=== PATIENT | female | born 1990 | race American Indian/Alaskan Native ===

== ENCOUNTER 2021-02-03 04:39 | Emergency (ER) | payer SELFPAY ==
--- NOTE | 2021-02-03 05:42 | Emergency Department Report ---
<KAYKAY FERNANDES - Last Filed: 02/03/21 07:03> ED General Adult HPI - General Chief complaint: Arrhythmia/Palpitations Stated complaint: PALPITATIONS Time Seen by Provider: 02/03/21 05:08 Source: patient, EMS Mode of arrival: Stretcher Limitations: No Limitations - History of Present Illness Initial comments: Patient is a 30-year-old female presents emergency room complaints of palpitations and shortness of breath that began just prior to arrival. Patient states that she was at a nightclub. She states that there was a lot of smoke in the club. She states that she also drank a mixed drink containing red bull energy drink and Coco liquor. She states that she had never drank a red bull previously. She states that when she began to leave the club but when she started to feel the symptoms. She states prior to this she was not having any symptoms. She denies any chest pain, nausea, vomiting, diarrhea, cough, leg swelling. She denies any sick contacts. She states that she did just travel from [place] and is visiting from out of town. She denies any recent surgery, recent immobilization, hormone use. No past medical history. No allergies to medications. Last menstrual cycle of third week of December. She states that she is a non-smoker. She denies any drug use. She states that she did not leave her drink unattended. - Related Data Previous Rx's Medication Instructions Recorded Last Taken Type Albuterol Mdi (or & Nicu Only) 2 puff IH QID PRN #8.5 gram 02/03/21 Unknown Rx [ProAir HFA Inhaler] Allergies Allergy/AdvReac Type Severity Reaction Status Date / Time shellfish derived Allergy Hives Verified 02/03/21 04:56 ED Review of Systems Comment: All other systems reviewed and negative ED Past Medical Hx - Past Medical History Previous Medical History?: No - Surgical History Past Surgical History?: No - Social History Smoking Status: Never Smoker - Medications Home Medications: Home Medications Medication Instructions Recorded Confirmed Last Taken Type Albuterol Mdi (or & Nicu Only) 2 puff IH QID PRN #8.5 gram 02/03/21 Unknown Rx [ProAir HFA Inhaler] ED Physical Exam - General Limitations: No Limitations General appearance: alert, in no apparent distress - Head Head exam: Present: atraumatic, normocephalic - Eye Eye exam: Present: normal appearance - ENT ENT exam: Present: mucous membranes moist - Respiratory Respiratory exam: Present: normal lung sounds bilaterally. Absent: respiratory distress, wheezes, rales, rhonchi, stridor, chest wall tenderness, accessory muscle use, decreased breath sounds, prolonged expiratory - Cardiovascular Cardiovascular Exam: Present: normal rhythm, tachycardia (mildly), normal heart sounds. Absent: systolic murmur, diastolic murmur, rubs, gallop - Neurological Exam Neurological exam: Present: alert, oriented X3, CN II-XII intact, normal gait. Absent: motor sensory deficit - Psychiatric Psychiatric exam: Present: normal affect, normal mood - Skin Skin exam: Present: warm, dry, intact ED Medical Decision Making - Lab Data Result diagrams: 02/03/21 05:30 02/03/21 05:30 - EKG Data EKG shows normal: sinus rhythm, intervals Rate: tachycardia - EKG Data 02/03/21 06:16 incomplete RBBB and LAFB RAD ST elevation likely from normal early repolarization no STEMI - Radiology Data Radiology results: report reviewed, image reviewed Ordering Physician: SOCORRO SCHAFFER Date of Service: 02/03/21 Procedure(s): XR chest routine 2V Accession Number(s): [id number] cc: SOCORRO SCHAFFER Fluoro Time In Minutes: CHEST 2 VIEWS INDICATION / CLINICAL INFORMATION: palpitations, SOB. COMPARISON: None available. FINDINGS: SUPPORT DEVICES: None. HEART / MEDIASTINUM: No significant abnormality. LUNGS / PLEURA: No significant pulmonary or pleural abnormality. No pneumothorax. ADDITIONAL FINDINGS: No significant additional findings. IMPRESSION: 1. No acute findings. Signer Name: Aissatou Hartmann MD Signed: 02/03/2021 6:39 AM Workstation Name: [id number] Transcribed By: JR Dictated By: Aissatou Hartmann MD Electronically Authenticated By: Aissatou Hartmann MD Signed Date/Time: 02/03/21638 DD/ 8 TD/TT: - Medical Decision Making Patient is a 30-year-old female presents emergency room complaints of palpitations and shortness of breath that began just prior to arrival. Patient states that she was at a nightclub. She states that there was a lot of smoke in the club. She states that she also drank a mixed drink containing red bull energy drink and Coco liquor. She states that she had never drank a red bull previously. She states that when she began to leave the club but when she started to feel the symptoms. She states prior to this she was not having any symptoms. She denies any chest pain, nausea, vomiting, diarrhea, cough, leg swelling. She denies any sick contacts. She states that she did just travel from [place] and is visiting from out of town. She denies any recent surgery, recent immobilization, hormone use. No past medical history. No allergies to medications. Last menstrual cycle of third week of December. She sta claudio that she is a non-smoker. She denies any drug use. She states that she did not leave her drink unattended. Vitals with tachycardia, otherwise stable. EKG shows sinus tachycardia, right axis deviation, incomplete right bundle branch block and left anterior fascicular block, ST elevation likely from normal early repolarization. CBC is normal. CMP with mild hypokalemia, repleted with K-Dur. TSH is normal. hCG is negative. Chest x-ray 1. No acute findings. UA without evidence of significant UTI or dehydration. UDS is negative. signed out to Dr. Ferrer, ER attending pending d-dimer results ED Disposition Clinical Impression: Tachycardia Disposition: - TO HOME OR SELFCARE Condition: Stable Instructions: Sinus Tachycardia Additional Instructions: Return to the emergency department should you develop worsening symptoms, inability to tolerate food or liquids, high fever or any other concerns Prescriptions: Albuterol Mdi (or & Nicu Only) [ProAir HFA Inhaler] 2 puff IH QID PRN #8.5 gram PRN Reason: Shortness Of Breath Referrals: PRIMARY CARE, [Primary Care Provider] - 3-5 Days <MARLON FERRER K - Last Filed: 02/03/21 08:57> ED Review of Systems ROS: Stated complaint: PALPITATIONS Other details as noted in HPI ED Course Vital Signs 02/03/21 02/03/21 02/03/21 04:52 04:54 04:57 Temperature 97.7 F Pulse Rate 109 H 104 H Respiratory 11 L 18 Rate Blood Pressure Blood Pressure 109/69 [Right] O2 Sat by Pulse 100 100 Oximetry 02/03/21 02/03/21 02/03/21 05:01 05:31 06:09 Temperature Pulse Rate 99 H 114 H 102 H Respiratory 12 18 17 Rate Blood Pressure 118/49 110/59 101/60 Blood Pressure [Right] O2 Sat by Pulse 98 100 99 Oximetry 02/03/21 02/03/21 02/03/21 06:33 07:01 07:21 Temperature Pulse Rate 98 H Respiratory 15 18 Rate Blood Pressure 113/62 101/60 Blood Pressure [Right] O2 Sat by Pulse 99 100 100 Oximetry 02/03/21 02/03/21 02/03/21 07:31 08:01 08:31 Temperature Pulse Rate 99 H 94 H 82 Respiratory 15 11 L 15 Rate Blood Pressure 106/64 125/60 103/61 Blood Pressure [Right] O2 Sat by Pulse 100 100 100 Oximetry - Reevaluation(s) Reevaluation #1: 02/03/21 08:55 Vital Signs 02/03/21 02/03/21 02/03/21 04:52 04:54 04:57 Temperature 97.7 F Pulse Rate 109 H 104 H Respiratory 11 L 18 Rate Blood Pressure Blood Pressure 109/69 [Right] O2 Sat by Pulse 100 100 Oximetry 02/03/21 02/03/21 02/03/21 05:01 05:31 06:09 Temperature Pulse Rate 99 H 114 H 102 H Respiratory 12 18 17 Rate Blood Pressure 118/49 110/59 101/60 Blood Pressure [Right] O2 Sat by Pulse 98 100 99 Oximetry 02/03/21 02/03/21 02/03/21 06:33 07:01 07:21 Temperature Pulse Rate 98 H Respiratory 15 18 Rate Blood Pressure 113/62 101/60 Blood Pressure [Right] O2 Sat by Pulse 99 100 100 Oximetry 02/03/21 02/03/21 02/03/21 07:31 08:01 08:31 Temperature Pulse Rate 99 H 94 H 82 Respiratory 15 11 L 15 Rate Blood Pressure 106/64 125/60 103/61 Blood Pressure [Right] O2 Sat by Pulse 100 100 100 Oximetry Patient resting comfortably 100% on room air. Patient states she feels better ED Medical Decision Making - Lab Data Result diagrams: 02/03/21 05:30 02/03/21 05:30 Laboratory Tests 02/03/21 02/03/21 02/03/21 05:30 05:30 05:30 WBC 6.7 RBC 3.86 Hgb 12.0 Hct 35.1 MCV 91 MCH 31 MCHC 34 RDW 13.1 L Plt Count 325 Lymph % (Auto) 28.4 Swift % (Auto) 13.3 H Eos % (Auto) 2.7 Baso % (Auto) 0.9 Lymph # (Auto) 1.9 Swift # (Auto) 0.9 H Eos # (Auto) 0.2 Baso # (Auto) 0.1 Seg Neutrophils % 54.7 Seg Neutrophils # 3.7 D-Dimer Sodium 139 Potassium 3.4 L Chloride 104.3 Carbon Dioxide 22 Anion Gap 16 BUN 13 Creatinine 0.7 Estimated GFR > 60 BUN/Creatinine Ratio 19 Glucose 108 H Calcium 8.4 Magnesium 1.90 Total Bilirubin 0.20 AST 17 ALT 18 Alkaline Phosphatase 66 Total Creatine Kinase 157 H Troponin T Total Protein 6.7 Albumin 4.1 Albumin/Globulin Ratio 1.6 TSH 2.300 HCG, Qual Urine Color Urine Turbidity Urine pH Ur Specific [place] Urine Protein Urine Glucose (UA) Urine Ketones Urine Blood Urine Nitrite Urine Bilirubin Urine Urobilinogen Ur Leukocyte Esterase Urine WBC (Auto) Urine RBC (Auto) U Epithel Cells (Auto) Urine Bacteria (Auto) Urine Mucus Urine Opiates Screen Urine Methadone Screen Ur Barbiturates Screen Ur Phencyclidine Scrn Ur Amphetamines Screen U Benzodiazepines Scrn Urine Cocaine Screen U Marijuana (THC) Screen Drugs of Abuse Note Plasma/Serum Alcohol 02/03/21 02/03/21 02/03/21 05:30 05:30 06:09 WBC RBC Hgb Hct MCV MCH MCHC RDW Plt Count Lymph % (Auto) Swift % (Auto) Eos % (Auto) Baso % (Auto) Lymph # (Auto) Swift # (Auto) Eos # (Auto) Baso # (Auto) Seg Neutrophils % Seg Neutrophils # D-Dimer Sodium Potassium Chloride Carbon Dioxide Anion Gap BUN Creatinine Estimated GFR BUN/Creatinine Ratio Glucose Calcium Magnesium Total Bilirubin AST ALT Alkaline Phosphatase Total Creatine Kinase Troponin T Total Protein Albumin Albumin/Globulin Ratio TSH HCG, Qual Negative Urine Color Yellow Urine Turbidity Slightly-cloudy Urine pH 7.0 Ur Specific [place] 1.012 Urine Protein <15 mg/dl Urine Glucose (UA) Neg Urine Ketones Neg Urine Blood Sm Urine Nitrite Pos Urine Bilirubin Neg Urine Urobilinogen < 2.0 Ur Leukocyte Esterase Tr Urine WBC (Auto) 2.0 Urine RBC (Auto) 2.0 U Epithel Cells (Auto) 8.0 Urine Bacteria (Auto) 1+ Urine Mucus Few Urine Opiates Screen Urine Methadone Screen Ur Barbiturates Screen Ur Phencyclidine Scrn Ur Amphetamines Screen U Benzodiazepines Scrn Urine Cocaine Screen U Marijuana (THC) Screen Drugs of Abuse Note Plasma/Serum Alcohol < 0.01 02/03/21 02/03/21 02/03/21 06:09 06:38 06:38 WBC RBC Hgb Hct MCV MCH MCHC RDW Plt Count Lymph % (Auto) Swift % (Auto) Eos % (Auto) Baso % (Auto) Lymph # (Auto) Swift # (Auto) Eos # (Auto) Baso # (Auto) Seg Neutrophils % Seg Neutrophils # D-Dimer < 135.0 Sodium Potassium Chloride Carbon Dioxide Anion Gap BUN Creatinine Estimated GFR BUN/Creatinine Ratio Glucose Calcium Magnesium Total Bilirubin AST ALT Alkaline Phosphatase Total Creatine Kinase Troponin T < 0.010 Total Protein Albumin Albumin/Globulin Ratio TSH HCG, Qual Urine Color Urine Turbidity Urine pH Ur Specific [place] Urine Protein Urine Glucose (UA) Urine Ketones Urine Blood Urine Nitrite Urine Bilirubin Urine Urobilinogen Ur Leukocyte Esterase Urine WBC (Auto) Urine RBC (Auto) U Epithel Cells (Auto) Urine Bacteria (Auto) Urine Mucus Urine Opiates Screen Negative Urine Methadone Screen Negative Ur Barbiturates Screen Negative Ur Phencyclidine Scrn Negative Ur Amphetamines Screen Negative U Benzodiazepines Scrn Negative Urine Cocaine Screen Negative U Marijuana (THC) Screen Negative Drugs of Abuse Note Disclamer Plasma/Serum Alcohol Critical care attestation.: If time is entered above; I have spent that time in minutes in the direct care of this critically ill patient, excluding procedure time. ED Disposition Is pt being admited?: No Does the pt Need Aspirin: No Time of Disposition: 08:57
[2021-02-03 05:47] LABS: Basophils # (Auto) 0.1 K/mm3 (0.0-0.1); Basophils % (Auto) 0.9 % (0.0-1.8); Eosinophils # (Auto) 0.2 K/mm3 (0.0-0.4); Eosinophils % (Auto) 2.7 % (0.0-4.3); Hematocrit 35.1 % (30.3-42.9); Lymphocytes # (Auto) 1.9 K/mm3 (1.2-5.4); Lymphocytes % (Auto) 28.4 % (13.4-35.0); Mean Corpuscular HGB Conc 34 % (30-34); Mean Corpuscular Volume 91 fl (79-97); Monocytes # (Auto) 0.9 K/mm3 (0.0-0.8); Monocytes % (Auto) 13.3 % (0.0-7.3); Platelet Count 325 K/mm3 (140-440); Red Blood Count 3.86 M/mm3 (3.65-5.03); Red Cell Distribution Width 13.1 % (13.2-15.2)
[2021-02-03] MEDS ORDERED: SODIUM CHLORIDE 0.9% 1000 ML 1,000 ML IV ONE ×2 (05:55→07:37)
[2021-02-03 06:40] LABS: Alanine Aminotransferase 18 units/L (7-56); Albumin 4.1 g/dL (3.9-5); Blood Urea Nitrogen 13 mg/dL (7-17); Calcium 8.4 mg/dL (8.4-10.2); Hemolysis Index 8
[2021-02-03 06:41] LABS: BUN/Creatinine Ratio 19
[2021-02-03 06:44] LABS: Bacteria,Urine 1+ /HPF (Negative); Bilirubin,Urine NEG (Negative); Blood,Urine SM (Negative); Color,Urine Yellow (Yellow); Mucus,Urine FEW /HPF; Protein,Urine <15 mg/dL mg/dL (Negative); Urobilinogen,Urine < 2.0 mg/dL (<2.0)
--- NOTE | 2021-02-03 06:44 | XRay Report ---
CHEST 2 VIEWS INDICATION / CLINICAL INFORMATION: palpitations, SOB. COMPARISON: None available. FINDINGS: SUPPORT DEVICES: None. HEART / MEDIASTINUM: No significant abnormality. LUNGS / PLEURA: No significant pulmonary or pleural abnormality. No pneumothorax. ADDITIONAL FINDINGS: No significant additional findings. IMPRESSION: 1. No acute findings. Signer Name: Aissatou Hartmann MD Signed: 02/03/2021 6:39 AM Workstation Name: [id number]
[2021-02-03] MEDS ORDERED: POTASSIUM CHLORIDE ER 20 MEQ TAB PO ONE (06:45)
[2021-02-03 06:50] LABS: Amphetamine Screen,Urine Negative; Benzodiazepines Screen,Urine Negative; Cannabinoid Screen,Urine Negative; Cocaine Screen,Urine Negative; Methadone Screen,Urine Negative; Opiate Screen,Urine Negative
[2021-02-03 09:10] VITALS: BP 115/64
--- NOTE | 2021-02-05 10:36 | Electrocardiograph Report ---
[facility] Test Date: 2021-02-03 Test Time: 05:53:30 Pat Name: LORI DRUMMOND Department: Room: Gender: F [employer] Planner: NAYELI : 1990 Requested By: KAYKAY FERNANDES Order Number: [id number] Reading MD: zEio Pettit Measurements Intervals [place] Rate: 111 P: 81 FL: 146 QRS: -102 QRSD: 103 T: 57 QT: 334 QTc: 455 Interpretive Statements Sinus tachycardia Probable left atrial enlargement Incomplete RBBB and LAFB Probable RVH w/ secondary repol abnormality ST elev, probable normal early repol pattern No previous ECG available for comparison Electronically Signed On 02-05-2021 10:35:56 EDT by Ezio Pettit
== END 2021-02-03 09:11 | disposition home or self-care (01) ==
LOC: ED 04:39
DX: R00.0 Tachycardia, unspecified (principal); R00.2 Palpitations; R06.02 Shortness of breath; Z91.013 Allergy to seafood; Z79.899 Other long term (current) drug therapy
CPT/HCPCS: 36415; 71046; 80053; 80307; 81001; 82550; 83735; 84443; 84484; 84703; 85025; 85379; 93005; 96360; 96361; 99284; J7030; 80320; G0480